=== PATIENT | female | born 1990 | race Caucasian/White ===

== ENCOUNTER 2019-01-08 08:07 | Emergency (ER) | payer BC ==
[~2019-01-08] VITALS: Ht 165.1 cm; Wt 107.5 kg
[2019-01-08 08:19] VITALS: Ht 165.1 cm; Wt 107.5 kg
[2019-01-08 09:25] LABS: BASOPHIL % 0.3 % (0-2); PLATELET COUNT 308 x10^3mcL (130-400)
[2019-01-08 09:36] LABS: RED CELL DISTRIBUTION WIDTH 14.7 % (11.5-14.5)
[2019-01-08 12:02] VITALS: BP 129/78
== END 2019-01-08 12:02 | disposition home or self-care (01) ==
LOC: ED 08:07
PROVIDERS: Emergency Medicine
DX: O20.0 Threatened abortion (principal)
CPT/HCPCS: 36415; Q0092